=== PATIENT | male | born 1960 | race Two or more races ===

== ENCOUNTER 2023-09-16 18:07 | Inpatient (IN) | payer MEDICAID ==
[~2023-09-16] VITALS: Ht 172.7 cm; Wt 89.4 kg
[2023-09-16] MEDS ORDERED: LevETIRAcetam 1,000 MG in DEXTROSE 5%-WATER 100 ML IV ONE (18:15)
[2023-09-16] MEDS ORDERED: LORazepam 2 MG/ML VIAL IVP ONE (18:15)
[2023-09-16 18:42] LABS: EOSINOPHILS % (AUTO) 1.4 % (1.0-6.0); HEMATOCRIT 41.6 % (41-53); HEMOGLOBIN 14.3 g/dL (13.5-17.5); LYMPHOCYTES # (AUTO) 1.2 K/uL (1.0-4.8); LYMPHOCYTES % (AUTO) 21.7 % (22.0-44.0); MEAN CORPUSCULAR HEMOGLOBIN 34.9 pg (26.0-34.0); MEAN CORPUSCULAR HGB CONC 34.4 G/dL (31.0-37.0); MEAN CORPUSCULAR VOLUME 101 fL (80-100); MONOCYTES # (AUTO) 0.5 K/uL (0.1-1.0); MONOCYTES % (AUTO) 8.9 % (2.0-9.0); NEUTROPHILS # (AUTO) 3.6 K/uL (1.8-7.7); PLATELET COUNT (AUTO) 72 K/uL (150-450); RED BLOOD CELL COUNT(AUTO) 4.11 MIL/uL (4.50-5.90); RED CELL DISTRIBUTION WIDTH 14.3 % (11.5-14.5); WHITE BLOOD COUNT (AUTO) 5.4 K/uL (4.5-11.0)
[2023-09-16 18:47] LABS: COVID AG,FIA SOURCE NASAL SWAB
[2023-09-16 18:52] LABS: ANION GAP 10 mmol/L (8-16); CALCIUM, TOTAL 8.3 mg/dL (8.8-10.5); CARBON DIOXIDE 25 mmol/L (22-29); CHLORIDE 103 mmol/L (98-107); CREATININE 0.69 mg/dL (0.60-1.30); GLOMERULAR FILTR. RATE CALC > 60 mL/min (>60); GLUCOSE,RANDOM 124 mg/dL (70-110); POTASSIUM 3.7 mmol/L (3.5-5.1); SODIUM SERUM 138 mmol/L (136-145); UREA NITROGEN, BLOOD 16 mg/dL (7-18)
[2023-09-16 18:58] LABS: ALANINE AMINOTRANSFERASE 55 U/L (12-78); ALBUMIN 2.9 g/dL (3.4-5.0); ALKALINE PHOSPHATASE 119 U/L (46-116); ASPARTATE AMINOTRANSFERASE 56 U/L (15-37); BILIRUBIN,TOTAL 0.4 mg/dL (0.1-1.0); LIPASE 93 U/L (16-77); TOTAL PROTEIN, SERUM 7.8 g/dL (6.4-8.2)
[2023-09-16 19:00] LABS: TROPONIN I-HIGH SENSITIVITY 7 ng/L (<76)
[2023-09-16 19:01] LABS: LACTIC ACID 1.2 mmol/L (0.4-2.0)
[2023-09-16 19:05] LABS: ALCOHOL, BLOOD (SERUM) < 3 mg/dL (0-10)
[2023-09-16 19:12] LABS: SARS-COV2 (COVID) ANTIGEN,FIA Negative (Negative)
[2023-09-16] MEDS ORDERED: OXYGEN THERAPY IH SCH (20:00)
[2023-09-16] MEDS ORDERED: LORazepam 2 MG/ML VIAL IVP PRN (21:45)
[2023-09-16] MEDS ORDERED: ACETAMINOPHEN 325 MG TABLET PO PRN (21:45)
[2023-09-16] MEDS ORDERED: BISACODYL 10 MG RECTAL RECTAL SUPPOSITORY PR PRN (21:45)
[2023-09-16] MEDS ORDERED: ZOLPIDEM TARTRATE 5 MG TABLET PO PRN (21:45)
[2023-09-16] MEDS ORDERED: ONDANSETRON HCL 4 MG/2 ML VIAL IVP PRN (21:45)
[2023-09-16] MEDS ORDERED: MAGNESIUM HYDROXIDE SUSPENSION 30 ML UDCUP PO PRN (21:45)
[2023-09-16] MEDS ORDERED: HYDROCODONE/ACETAMINOPHEN 5-325 MG TABLET PO PRN (21:45)
[2023-09-16] MEDS ORDERED: MORPHINE SULFATE 2 MG/ML SYRINGE IVP PRN (21:45)
[2023-09-16 22:17] VITALS: BP 124/77; PULSE 71; RESP 20; TEMP 98
[2023-09-16] MEDS: HEPARIN SODIUM,PORCINE 5,000 UNITS/ML VIAL SQ SCH (23:41)
[2023-09-17] MEDS ORDERED: SODIUM CHLORIDE 0.9% 250 ML IV ONE ×2 (06:06→06:11)
[2023-09-17] MEDS ORDERED: LevETIRAcetam 1,000 MG in DEXTROSE 5%-WATER 100 ML IV SCH (06:30)
[2023-09-17 08:07] VITALS: BP 120/63; PULSE 61; RESP 18; TEMP 99
[2023-09-17] MEDS: PANTOPRAZOLE SODIUM 40 MG DR TABLET PO SCH (08:30)
[2023-09-17] MEDS: DOCUSATE SODIUM 100 MG CAPSULE PO SCH ×2 (08:30→21:07)
[2023-09-17] MEDS: HEPARIN SODIUM,PORCINE 5,000 UNITS/ML VIAL SQ SCH ×4 (08:31→23:59)
[2023-09-17 10:40] VITALS: BP 123/72; PULSE 62; RESP 20; TEMP 98.8
[2023-09-17 15:10] VITALS: BP 118/64; PULSE 64; RESP 18; TEMP 97.9
[2023-09-17 15:14] VITALS: BP 118/64; PULSE 64; RESP 18; TEMP 97.9
[2023-09-17 18:32] LABS: APPEARANCE,URINE CLEAR (CLEAR); BILIRUBIN,URINE NEGATIVE (NEGATIVE); COLOR,URINE YELLOW (YELLOW); GLUCOSE, URINE (UA) NEGATIVE (NEGATIVE); KETONES,URINE NEGATIVE (NEGATIVE); LEUKOCYTE ESTERASE ,URINE NEGATIVE (NEGATIVE); NITRATE,URINE NEGATIVE (NEGATIVE); OCCULT BLOOD,URINE NEGATIVE (NEGATIVE); PROTEIN,URINE NEGATIVE (NEGATIVE); SPECIFIC GRAVITIY, URINE 1.023 (1.003-1.030)
[2023-09-17 18:38] LABS: ALCOHOL, URINE DRUG SCREEN NEGATIVE (NEGATIVE); AMPHET/METH SCREEN,URINE NEGATIVE (NEGATIVE); BARBITURATE SCREEN, URINE NEGATIVE (NEGATIVE); BENZODIAZEPINES SCREEN,URINE POSITIVE (NEGATIVE); CANNABINOID SCREEN,URINE POSITIVE (NEGATIVE); COCAINE SCREEN,URINE NEGATIVE (NEGATIVE); METHADONE SCREEN, URINE NEGATIVE (NEGATIVE); OPIATE SCREEN,URINE NEGATIVE (NEGATIVE); PHENCYCLIDINE SCREEN,URINE NEGATIVE (NEGATIVE)
[2023-09-17 18:59] LABS: BACTERIA,URINE None Seen /HPF (None Seen); RBC,URINE None Seen /HPF (0-2); WBC,URINE None Seen /HPF (0-5)
[2023-09-17] MEDS: LevETIRAcetam 500 MG TABLET PO SCH (21:08)
[2023-09-17 21:10] VITALS: BP 117/65; PULSE 57; RESP 19; TEMP 98
[2023-09-18 00:41] VITALS: BP 122/66; PULSE 57; RESP 19; TEMP 98.4
[2023-09-18 04:57] VITALS: BP 119/63; PULSE 61; RESP 18; TEMP 98
[2023-09-18 07:30] VITALS: BP 123/68; PULSE 64; RESP 19; TEMP 98.2
[2023-09-18] MEDS: HEPARIN SODIUM,PORCINE 5,000 UNITS/ML VIAL SQ SCH (08:30)
[2023-09-18] MEDS: PANTOPRAZOLE SODIUM 40 MG DR TABLET PO SCH (08:30)
[2023-09-18] MEDS: DOCUSATE SODIUM 100 MG CAPSULE PO SCH (08:30)
[2023-09-18] MEDS: LevETIRAcetam 500 MG TABLET PO SCH (08:31)
[2023-09-18 11:05] VITALS: BP 129/78; PULSE 69; RESP 20; TEMP 98.4
[2023-09-18] MEDS ORDERED: LEVE500T8 PO (13:53)
== END 2023-09-18 14:55 | disposition home or self-care (01) | DRG 53 ==
LOC: EMS 18:08 → 5S 21:00
PROVIDERS: ADMIT Internal Medicine; ATTEND Internal Medicine
DX: G40.901 Epilepsy, unspecified, not intractable, with status epilepticus (principal); Z20.822 Contact with and (suspected) exposure to COVID-19; Z87.820 Personal history of traumatic brain injury
CPT/HCPCS: 70450; 71045; 72125; 80053; 80307; 81001; 83605; 83690; 84484; 85025; 93005; 99291; G0480; J0712; J1644; J7050; J7060; 36415-L1; 36415-TC

== ENCOUNTER 2023-11-17 16:34 | Emergency (ER) | payer MEDICAID ==
[~2023-11-17] VITALS: Ht 175.3 cm; Wt 86.4 kg
[~2023-11-17 16:34] MED LIST: LEVE500T8 PO
[2023-11-17 16:37] VITALS: BP 144/88; PULSE 65; RESP 16; TEMP 98.3
[2023-11-17] MEDS ORDERED: LevETIRAcetam 500 MG TABLET PO ONE (17:30)
[2023-11-17] MEDS ORDERED: LEVE500T8 PO (17:54)
== END 2023-11-17 18:50 | disposition home or self-care (01) ==
LOC: EMS 16:34
DX: G40.909 Epilepsy, unspecified, not intractable, without status epilepticus (principal)
CPT/HCPCS: 99283